=== PATIENT | male | born 1960 | race Caucasian/White ===

== ENCOUNTER 2023-10-09 13:12 | Emergency (ER) | payer BC, SELFPAY ==
[2023-10-09 13:21] VITALS: BP 155/81
--- NOTE | 2023-10-09 15:34 | ED.GENMED ---
History of Present Illness
General
Chief Complaint: Head Injury
Source: patient
Exam Limitations: none
Time Seen by Provider: 10/09/23 15:01
Nursing documentation reviewed up to this point in time: agreed with
Travel History
Have you had any contact with someone who has COVID-19?: No
Do you have any symptoms of coronavirus? Fever > 100 degrees, chills, cough, shortness of breath, sore throat, loss of taste or smell, muscle aches, or headache?: No
History of Present Illness
History of Present Illness:
63 y/o M with no sig pmh
was working on his house in [place] conner ladder
fell about 4 feet and landed on left side, hit head on a wooden pole, had no LOC
has pain mildly in neck and head
went to urgent care in [place] and had yaron placed in the scalp
utd on tetanus
sent for imaging
no nauesa, vomiting, dizziness, ocnfusion, chest pain, shortness of breath, hematuria, back pain
Past History
Past History
ED Past Medical History: None
ED Past Surgical History: None
Social History
Tobacco: Non-smoker
Alcohol: Occasional
Drug: None
Personal:
Living: with family
Employment: Employed
Review of Systems
Review of Systems
Allergies reviewed?: Yes
All Other Systems: Not applicable
Phy Exam
Physical Exam
Physical Exam:
GENERAL: Alert , in no apparent distress
HEAD: irregular laceration stapled to top of scalp (approx5 cm)
no active bleeding, some fresh blood oozed but no bleeding activelly
wound is closed
NECK: no midline tenderness, active ROM intact, no paraspinal muscle tenderness;
EYE: pupils equal and reactive, EOMs intact.
ENT: o/p clr, mmm. no hemotympanum
CARDIAC: Regular rate and rhythm, no edema
LUNGS: Clear breath sounds bilaterally, no acute respiratory distress, no wheezes/rales/rhonchi
ABDOMEN: Soft, without focal tenderness, no r/g, no cvat
NEUROLOGICAL: Alert and oriented, no focal neuro deficits, CN intact, 5/5 strength, sensation intact, finger to nose normal
SKIN: Warm and dry, laceration
MUSCULOSKELETAL: No edema, well perfused.
PSYCH: Normal and appropriate interaction.
Course
Orders/Labs/Results
Orders:
Orders
10/09/23 14:46
CT Head W/o Iv Contrast Urgent
Comment:
Reason For Exam: hit top of head. head lac with yaron placed
10/09/23 14:51
CT Cervical Spine W/o Iv Contr Urgent
Comment:
Reason For Exam: fell has neck discomfort
Vital Signs
Initial and Last Documented VS:
Initial Vital Signs
Temp Pulse Resp BP Pulse Ox
98.3 F 75 16 155/81 100
10/09/23 13:21 10/09/23 13:21 10/09/23 13:21 10/09/23 13:21 10/09/23 13:21
Last Documented Vital Signs
Temp Pulse Resp BP Pulse Ox
98.3 F 75 16 155/81 100
10/09/23 13:21 10/09/23 13:21 10/09/23 13:21 10/09/23 13:21 10/09/23 13:21
MDM/Problems Addressed
Differential Diagnosis Includes:
head injury, concussion, skull fracture, cerivcal frcture, cerivcal strina
MDM/Problems Addressed:
63 y/o M sent from for cts after head injury
fell off ladder 4 feet and hit head, had laceration that was repaired at with yaron
pt lives here but was in [place] at his house there fixing it up
no nausea.vomiting, confusion, LOC
no thinners
neuro intact
cts intact
tetanus UTD
d/c home
*Critical Care Note
Total Time (30-74mins, 75-104mins- exclusive of procedures): Not Applicable
ED Attending Note
-
Portions of this chart may have been created with voice recognition software.� Occasional wrong word or��sound alike� substitutions may have occurred due to the inherent limitations of voice recognition software.
Discharge Plan
Departure
Patient Disposition: Home (Routine Discharge)
Date of Disposition: 10/09/23
Time of Disposition: 15:39
Patient with high blood pressure during this ER visit?: Yes
Condition: Fair
Covid-19: Not Applicable
Discharge Problem:
Complex laceration of scalp, Minor head injury
Instructions: Laceration Repair With [place] (DC), Minor Head Injury (DC), BLOOD PRESSURE
Activity Restrictions/Additional Instructions:
Your CAT scan showed no signs of traumatic head injury or skull fracture or any cervical fracture. You do have mild degenerative changes in your neck. Take Tylenol or ibuprofen as needed for pain. Keep the wound clean and dry, after 24 hours you
can get it wet in the shower once a day. Make sure that there is no dried blood on top of the yaron. They should be removed by your family doctor or you can return to the ER or see urgent care and about 7 days.
Return for severe headache, vomiting, confusion, weakness, numbness or tingling in your arms or legs or any concerns. You could develop symptoms of a concussion in the next day or so. The symptoms would be lightheadedness, fogginess, fatigue,
light sensitivity etc. If you develop these you should avoid working for at least 2 days and avoid activities like reading, cell phone, TV, computer use as these can rarely cause a lot of headaches. After 2 days he should be able to return to the
activity. If you have any issues make sure you are seeing your family doctor first
Interventions
Interventions:
*Risk Screen - Suicide Last Done: 10/09/23 14:30
*General Assessment Last Done: 10/09/23 14:30
*Neglect/Abuse Screening Last Done: 10/09/23 14:30
ED- Fall Risk Assessment Last Done: 10/09/23 14:30
*ED COVID-19 Vaccine History Last Done: 10/09/23 14:30
*Nursing Disposition Last Done: 10/09/23 15:57
ED- Neurological Assessment Last Done: 10/09/23 14:30
ED-Skin Assessment Last Done: 10/09/23 14:30
Discharge Date and Time
Discharge Date/Time: 10/09/23 15:57
Print Language: GREEK
== END 2023-10-09 15:57 | disposition home or self-care (01) ==
LOC: EMR 13:12
PROVIDERS: EMERGENCY PHYSICIAN Emergency Medicine; FAMILY PHYSICIAN Family Medicine
DX: S01.01XA Laceration without foreign body of scalp, initial encounter (principal); S09.90XA Unspecified injury of head, initial encounter; W11.XXXA Fall on and from ladder, initial encounter
CPT/HCPCS: 99284; 70450; 72125

== ENCOUNTER → 2023-12-30 06:21 | Day surgery (SDC) | payer BC, SELFPAY | LOC: GI 06:21 | PROVIDERS: ATTENDING PHYSICIAN Internal Medicine Gastroenterology | DX: R93.3 Abnormal findings on diagnostic imaging of other parts of digestive tract (principal); K64.0 First degree hemorrhoids; R12 Heartburn; K22.89 Other specified disease of esophagus | CPT/HCPCS: 45378; 43239; 88305 ==

== ENCOUNTER 2025-03-16 22:21 | Emergency (ER) | payer BC, SELFPAY ==
[2025-03-16 22:22] VITALS: BP 188/96
[2025-03-16 22:25] VITALS: BP 169/99
[2025-03-16 22:34] VITALS: BP 150/93
[2025-03-16 23:00] VITALS: BP 146/86
[2025-03-16 23:17] VITALS: BP 167/92
[2025-03-16 23:30] VITALS: BP 148/90
[2025-03-16 23:49] LABS: Hematocrit 43.4 % (39.0-52.0); Hemoglobin 14.9 g/dL (13.0-18.0); Mean Corp Hgb Conc. 34.3 g/dL (33.0-37.0); Mean Corpuscular Volume 88.4 fL (80.0-94.0); Nucleated Red Blood Cells % 0 % (-); Platelet Count 215 10^3/uL (130-400); Red Cell Dist. Width 12.1 % (11.5-14.5)
[2025-03-17] VITALS: BP 157/91
[2025-03-17 00:10] LABS: ALT (SGPT) 30 U/L (0-50); AST (SGOT) 30 U/L (17-59); Albumin 4.5 g/dl (3.5-5.0); Alkaline Phosphatase 55 U/L (38-126); Blood Urea Nitrogen 15 mg/dl (9-20); Calcium 9.3 mg/dl (8.4-10.2); Carbon Dioxide 26 mmol/L (22-30); Chloride 102 mmol/L (98-107); Estimated Creatinine Clearance 111 ml/min; Glucose 103 mg/dl (70-99); Potassium 3.8 mmol/L (3.5-5.1); Sodium 133 mmol/L (135-145); Total Protein 7.7 g/dl (6.3-8.2); eGFR > 60.00
[2025-03-17 00:11] LABS: Troponin I 0.019 ng/ml
[2025-03-17 00:37] VITALS: BP 139/87
[2025-03-17 01:00] VITALS: BP 126/82
[2025-03-17 01:30] VITALS: BP 129/85
[2025-03-17 02:00] VITALS: BP 121/81
--- NOTE | 2025-03-17 02:03 | ED.GENMED ---
History of Present Illness
General
Chief Complaint: Blood Pressure Problem
Source: patient and spouse
Exam Limitations: none
Time Seen by Provider: 03/16/25 23:38
Nursing documentation reviewed up to this point in time: agreed with
History of Present Illness
History of Present Illness:
65-year-old male presenting to the emergency department today with concerns of elevated blood pressure over the past 5 days and intermittent headache described as frontal achy lasting for few minutes and then resolving.
Past History
Past History
ED Past Medical History: None
ED Past Surgical History: None
Social History
Tobacco: Non-smoker
Alcohol: Occasional
Drug: None
Personal:
Living: with family
Employment: Employed
Review of Systems
Review of Systems
Allergies reviewed?: Yes
All Other Systems: ROS reviewed and negative except as documented in HPI and ROS
Phy Exam
Physical Exam
Physical Exam:
GENERAL: Alert , in no apparent distress
EYE: pupils equal and reactive
NECK: Supple, no significant adenopathy.
ENT: o/p clr, mmm.
CARDIAC: Regular rate and rhythm .
LUNGS: Clear breath sounds bilaterally, no acute respiratory distress, no wheezes/rales/rhonchi
ABDOMEN: Soft, without focal tenderness, no r/g, no cvat
NEUROLOGICAL: Alert and oriented, no focal neuro deficits 5 out of 5 upper and lower extremity strength normal sensation with palpating bilaterally normal finger-nose and [id number] no pronator drift
SKIN: Warm and dry, skin intact.
MUSCULOSKELETAL: No edema, well perfused.
PSYCH: Normal and appropriate interaction.
Course
Orders/Labs/Results
Orders:
Orders
03/16/25 23:25
EKG [Electrocardiogram (*1)] Stat
Reason for Study: Chest Pain
03/16/25 23:26
EKG- Treatment ONCE
03/16/25 23:27
Cardiac Monitoring- Treatment ONCE
IV Insert/Care/Rem.- Treatment PRN
03/16/25 23:29
Complete Blood Count/With Diff Urgent
Comprehensive Metabolic Panel Urgent
Troponin I Urgent
03/17/25 00:00
CR Chest - 2 Views Urgent
Reason For Exam: respiratory distress
03/17/25 00:13
CT Head W/o Iv Contrast Urgent
Comment:
Reason For Exam: NATH new
03/17/25 02:02
Ketorolac [Toradol] 15 mg IV NOW STA
Abnormal Lab Results
03/16/25
23:29
Sodium 133 L mmol/L
(135-145)
Glucose 103 H mg/dl
(70-99)
03/16/25 23:29
03/16/25 23:29
Vital Signs
Initial and Last Documented VS:
Initial Vital Signs
Temp Pulse Resp BP Pulse Ox
98 F 74 16 188/96 98
03/16/25 22:22 03/16/25 22:22 03/16/25 22:22 03/16/25 22:22 03/16/25 22:22
Last Documented Vital Signs
Temp Pulse Resp BP Pulse Ox
97.9 F 63 17 129/85 97
03/16/25 22:48 03/17/25 01:30 03/17/25 01:30 03/17/25 01:30 03/17/25 01:30
MDM/Problems Addressed
MDM/Problems Addressed:
65-year-old male presenting to the emergency department today with concerns of elevated blood pressure over the past 5 days and intermittent headache also feels shaky when he has a headache. Here blood pressure elevated on arrival otherwise vital
signs are normal. Blood pressure improving without specific treatment labs unremarkable other than slightly low sodium level troponin negative EKG without emergent findings chest x-ray normal and head CT negative. Patient no distress here stable
for close outpatient follow-up. Return precautions given.
*Pulse Oximetry
SaO2: 97
Oxygen Mode of Delivery: Room air
Patient hypoxic: no (97)
*Critical Care Note
Total Time (30-74mins, 75-104mins- exclusive of procedures): Not Applicable
ED Attending Note
-
Portions of this chart may have been created with voice recognition software.� Occasional wrong word or��sound alike� substitutions may have occurred due to the inherent limitations of voice recognition software.
Discharge Plan
Departure
Patient Disposition: Home (Routine Discharge)
Date of Disposition: 03/17/25
Time of Disposition: 02:06
Patient with high blood pressure during this ER visit?: No
Condition: Good
Covid-19: Not Applicable
Discharge Problem:
Headache
Instructions: Headache in adults - ED (DC)
Referrals:
Beto Fernandez PA [Family Provider, Family Practice]
Activity Restrictions/Additional Instructions:
You came to the emergency department today with concerns of headache and high blood pressure. Here your blood pressure improved. Your reassuring assessment with normal head CT and labs. Please feel close with your primary care doctor within 1
week. Return for any progressive or worsening symptoms.
Interventions
Interventions:
*Risk Screen - Suicide Last Done: 03/16/25 22:22
*General Assessment Last Done: 03/16/25 22:44
*Neglect/Abuse Screening Last Done: 03/16/25 22:22
*ED- Fall Risk Assessment Last Done: 03/16/25 22:44
*ED COVID-19 Vaccine History Last Done: 03/16/25 22:44
*ED Influenza Vaccine History Last Done: 03/16/25 22:44
ED- Cardiac Assessment Last Done: 03/16/25 22:45
ED- Neurological Assessment Last Done: 03/16/25 22:52
ED- Pulmonary Assessment Last Done: 03/16/25 22:49
Discharge Date and Time
Print Language: HUNGARIAN
[2025-03-17] MEDS: TORADOL 15 MG IV (02:05)
== END 2025-03-17 02:11 | disposition home or self-care (01) ==
LOC: EMR 22:21
PROVIDERS: EMERGENCY PHYSICIAN Student in an Organized Health Care Education/Training Program; FAMILY PHYSICIAN Physician Assistant
DX: R51.9 Headache, unspecified (principal)
CPT/HCPCS: 99284; 96374; 70450; 71046; 80053; 84484; 85025; 93005

== ENCOUNTER 2025-03-17 12:55 | Emergency (ER) | payer BC, SELFPAY ==
[2025-03-17] VITALS (7 sets, daily range): BP systolic 152–166; BP diastolic 89–102
--- NOTE | 2025-03-17 14:45 | ED.GENMED ---
History of Present Illness
<Graham Pennington PA-C - Last Filed: 03/20/25 08:47>
General
Chief Complaint: Blood Pressure Problem
Source: patient
Exam Limitations: none
Time Seen by Provider: 03/17/25 14:27
History of Present Illness
History of Present Illness:
65-year-old male presents with persistently elevated blood pressure readings shakiness headache and he had some chest discomfort this morning as well. He was here overnight. He develops these episodes of shakiness heavier breathing foggy headache.
He has not been previously diagnosed with high blood pressure. His readings at home were 190/110. He denies any vision change or dizziness. No unilateral numbness or weakness. No other complaints at this time
Past History
<PAULETTE Martin Last Filed: 03/20/25 08:47>
Past History
ED Past Medical History: None
ED Past Surgical History: None
Social History
Tobacco: Non-smoker
Alcohol: Occasional
Drug: None
Personal:
Living: with family
Employment: Employed
Phy Exam
<PAULETTE Martin Last Filed: 03/20/25 08:47>
Physical Exam
Physical Exam:
General: Well-appearing male no acute respiratory distress
HEENT: Normal cephalic atraumatic
Heart: Regular rate and rhythm
Lungs clear no wheeze
Extremities: No cyanosis or edema
Skin warm no rash
Neurologic exam normal gait alert and oriented no facial asymmetry
Course
<PAULETTE Martin Last Filed: 03/20/25 08:47>
Orders/Labs/Results
Orders:
Orders
03/17/25 12:56
EKG [Electrocardiogram (*1)] Urgent
Reason for Study: Chest Pain
EKG- Treatment ONCE
03/17/25 14:52
Complete Blood Count/With Diff Urgent
Comprehensive Metabolic Panel Urgent
TSH Reflex To Free T4 Urgent
Troponin I Urgent
03/17/25 18:28
CT Chest Angio W/wo Iv Contras Urgent
Comment:
Reason For Exam: chest pain
03/17/25 18:34
Troponin I Urgent
03/17/25 20:50
EKG [Electrocardiogram (*1)] Urgent
Reason for Study: Chest Pain
EKG- Treatment ONCE
03/17/25 20:51
Troponin I Urgent
03/17/25 14:52
03/17/25 14:52
Vital Signs
Initial and Last Documented VS:
Initial Vital Signs
Temp Pulse Resp BP Pulse Ox
98.2 F 68 16 163/97 99
03/17/25 13:02 03/17/25 13:02 03/17/25 13:02 03/17/25 13:02 03/17/25 13:02
Last Documented Vital Signs
Temp Pulse Resp BP Pulse Ox
98.2 F 68 13 166/92 96
03/17/25 13:02 03/17/25 21:00 03/17/25 21:00 03/17/25 21:00 03/17/25 21:00
<Aydin Martinez MD - Last Filed: 03/17/25 19:41>
Orders/Labs/Results
Orders:
Orders
03/17/25 12:56
EKG [Electrocardiogram (*1)] Urgent
Reason for Study: Chest Pain
EKG- Treatment ONCE
03/17/25 14:52
Complete Blood Count/With Diff Urgent
Comprehensive Metabolic Panel Urgent
TSH Reflex To Free T4 Urgent
Troponin I Urgent
03/17/25 18:28
CT Chest Angio W/wo Iv Contras Urgent
Comment:
Reason For Exam: chest pain
03/17/25 18:34
Troponin I Urgent
03/17/25 20:50
EKG [Electrocardiogram (*1)] Urgent
Reason for Study: Chest Pain
EKG- Treatment ONCE
03/17/25 20:51
Troponin I Urgent
03/17/25 14:52
03/17/25 14:52
Vital Signs
Initial and Last Documented VS:
Initial Vital Signs
Temp Pulse Resp BP Pulse Ox
98.2 F 68 16 163/97 99
03/17/25 13:02 03/17/25 13:02 03/17/25 13:02 03/17/25 13:02 03/17/25 13:02
Last Documented Vital Signs
Temp Pulse Resp BP Pulse Ox
98.2 F 68 13 166/92 96
03/17/25 13:02 03/17/25 21:00 03/17/25 21:00 03/17/25 21:00 03/17/25 21:00
<rGaham Pennington PA-C - Last Filed: 03/20/25 08:47>
MDM/Problems Addressed
Differential Diagnosis Includes:
Patient with elevated blood pressure readings shakiness. No prior history of hypertension was here last night for the same. CT of the head last night was negative. He did develop chest discomfort this morning. EKG through triage shows sinus
rhythm with a rate of 68 no ischemic changes. Troponin is pending
<Graham Pennington PA-C - Last Filed: 03/20/25 08:47>
*Pulse Oximetry
SaO2: 99
Oxygen Mode of Delivery: Room air
Patient hypoxic: no
*Critical Care Note
Total Time (30-74mins, 75-104mins- exclusive of procedures): Not Applicable
<Graham Pennington PA-C - Last Filed: 03/20/25 08:47>
Update Note
Update Note:
Initial troponin undetectable, second troponin 0.019 patient did have an episode of chest discomfort while he was here third troponin is pending. Discussed with emergency room attending saw the patient as well. Blood pressure staying in the 150s
over 90s range. He did endorse that he has a history of an aneurysm in his chest. Due to the discomfort and elevated blood pressure CT angiogram of the chest was ordered which is negative for acute finding. There is a stable small ascending
aortic aneurysm without evidence of dissection. If third troponin stable patient is stable for discharge pain follow-up. Will prescribe low-dose beta-greta for his high [place] until follow-up
ED Attending Note
<Graham Pennington PA-C - Last Filed: 03/20/25 08:47>
-
Portions of this chart may have been created with voice recognition software.� Occasional wrong word or��sound alike� substitutions may have occurred due to the inherent limitations of voice recognition software.
<Aydin Martinez MD - Last Filed: 03/17/25 19:41>
ED Attending Note
Patient seen and examined by attending physician: Yes
I performed the substantive portion of visit, reviewed & personally made and approve the management plan that is documented in note by myself or DEVYN.: Yes
ED Attending Note:
65-year-old male returns complaining of elevated blood pressure and some intermittent chest pain. Patient was seen last night for a headache. Blood pressure became a concern 4 days ago when he had a stressful day at work felt off and checked his
blood pressure which was elevated. Last evening he felt his blood pressure was elevated and developed a headache. Headache was not a thunderclap headache no visual issues no neurologic symptoms. Blood pressure improved during the ER visit last
evening. CT was negative. Patient was stable for discharge. However today he had recurring concerns with his blood pressure and had a few episodes of brief vague nonexertional chest discomfort. No radiation no nausea no diaphoresis.
On exam patient is nontoxic in no distress. Stable vital signs. Last blood pressure 155/91. Exam is unremarkable. Lungs are clear and equal. Heart regular rate and rhythm. Abdomen is nontender. EKG is stable. Troponin is negative however
repeat troponin remains negative at 0.019. Likely has no consequence but since there is a minuscule trending up we will treat that again. CT angiography stable. Will arrange close follow-up with cardiology. Plus minus starting very mild blood
pressure management.
Discharge Plan
Departure
Patient Disposition: Home (Routine Discharge)
Date of Disposition: 03/17/25
Time of Disposition: 21:52
Patient with high blood pressure during this ER visit?: Yes
Discharge Problem:
Hypertension, Chest pain
Instructions: High Blood Pressure (DC), Chest Pain DCA Follow Up
Prescriptions:
New
metoprolol tartrate 25 mg tablet
12.5 mg PO DAILY Qty: 14 0RF
Referrals:
Beto Fernandez PA [Family Provider, Family Practice]
Aydin Fernando MD [Active, Cardiology]
Activity Restrictions/Additional Instructions:
Take medicine as directed once a day. Please follow-up with cardiology, they should call you to set up an appointment. Return if worse otherwise
Interventions
Interventions:
*Risk Screen - Suicide Last Done: 03/17/25 13:02
*General Assessment Last Done: 03/17/25 14:39
*Neglect/Abuse Screening Last Done: 03/17/25 13:02
*ED- Fall Risk Assessment Last Done: 03/17/25 21:05
*ED COVID-19 Vaccine History Last Done: 03/17/25 14:39
*ED Influenza Vaccine History Last Done: 03/17/25 14:39
*Nursing Disposition Last Done: 03/17/25 22:06
ED- Cardiac Assessment Last Done: 03/17/25 14:39
ED- Neurological Assessment Last Done: 03/17/25 14:39
ED- Pulmonary Assessment Last Done: 03/17/25 14:39
Discharge Date and Time
Discharge Date/Time: 03/17/25 22:24
Print Language: [place]NA[place]
[2025-03-17 14:59] LABS: Hematocrit 44.0 % (39.0-52.0); Hemoglobin 14.9 g/dL (13.0-18.0); Mean Corp Hgb Conc. 33.9 g/dL (33.0-37.0); Mean Corpuscular Volume 89.1 fL (80.0-94.0); Nucleated Red Blood Cells % 0 % (-); Platelet Count 209 10^3/uL (130-400); Red Cell Dist. Width 12.0 % (11.5-14.5)
[2025-03-17 15:15] LABS: ALT (SGPT) 29 U/L (0-50); AST (SGOT) 27 U/L (17-59); Albumin 4.4 g/dl (3.5-5.0); Alkaline Phosphatase 58 U/L (38-126); Blood Urea Nitrogen 14 mg/dl (9-20); Calcium 9.5 mg/dl (8.4-10.2); Carbon Dioxide 26 mmol/L (22-30); Chloride 106 mmol/L (98-107); Glucose 94 mg/dl (70-99); Potassium 4.1 mmol/L (3.5-5.1); Sodium 135 mmol/L (135-145); Total Protein 7.7 g/dl (6.3-8.2); eGFR > 60.00
[2025-03-17 15:37] LABS: Troponin I < 0.012 ng/ml
[2025-03-17 19:04] LABS: Troponin I 0.019 ng/ml
[2025-03-17 21:26] LABS: Troponin I 0.016 ng/ml
== END 2025-03-17 22:24 | disposition home or self-care (01) ==
LOC: EMR 12:55
PROVIDERS: Physician Assistant; EMERGENCY PHYSICIAN Emergency Medicine; FAMILY PHYSICIAN Physician Assistant
DX: I10 Essential (primary) hypertension (principal); R07.89 Other chest pain
CPT/HCPCS: 99284; 71275; 80053; 84443; 84484; 85025; 93005; Q9967

== ENCOUNTER 2025-03-28 13:12 | Emergency (ER) | payer OTHER, SELFPAY ==
[2025-03-28 13:15] VITALS: BP 137/88
--- NOTE | 2025-03-28 13:39 | ED.GENMED ---
History of Present Illness
General
Chief Complaint: Eye Problems
Source: patient
Exam Limitations: none
Time Seen by Provider: 03/28/25 13:37
Nursing documentation reviewed up to this point in time: agreed with
History of Present Illness
History of Present Illness:
65-year-old male with no significant past medical history presents for visual disturbance right eye. States yesterday a.m. he had a 'bright crescent' outer right visual field until bedtime, then again upon awakening at 8 a.m. but none since. Also
has had 'like a film' in the right eye when he moves the eye back and forth and this has persisted. Denies pain in the eye.
He's had a frontal headache past two weeks that he always gets this time of year due to the dry weather.
Has hx 'optical mingraines' for many years, sometime every month, sometimes none for 6 months, states current symptoms are not typical of those migraines
Past History
Past History
ED Past Medical History: Other (Headaches 'optical migraines')
ED Past Surgical History: Appendectomy
Social History
Tobacco: Non-smoker
Alcohol: Occasional
Drug: None
Personal:
Living: with family
Employment: Employed
Review of Systems
Review of Systems
Allergies reviewed?: Yes
All Other Systems: ROS reviewed and negative except as documented in HPI and ROS
Phy Exam
Physical Exam
Physical Exam:
GENERAL: No acute distress. A&Ox3.
CONSTITUTIONAL: Afebrile.
EYES: clear, conjunctivae normal EOM's intact.,
ENMT: moist mucus membranes, Pharynx nl
RESPIRATORY: Regular respirations, nonlabored, lungs clear.
CARDIOVASCULAR: Regular rate and rhythm, no murmurs, no rubs.
MUSCULOSKELETAL: Moves with ease. Well perfused.
SKIN: Warm, dry, pink
PSYCH: Normal mood and affect. Well kept, interactive and appropriate
NEUROLOGIC: Awake, alert and oriented. No focal neurological deficits
Eye Exam
Eye Exam: PERRL, EOMI, cornea clear, conjunctiva normal, disc sharp, globe normal, visual acuity normal and visual dimas normal
Course
Orders/Labs/Results
Orders:
Orders
03/28/25 13:39
Visual Acuity- Treatment ONCE
Vital Signs
Initial and Last Documented VS:
Initial Vital Signs
Temp Pulse Resp BP Pulse Ox
98.2 F 79 16 137/88 98
03/28/25 13:15 03/28/25 13:15 03/28/25 13:15 03/28/25 13:15 03/28/25 13:15
Last Documented Vital Signs
Temp Pulse Resp BP Pulse Ox
98.2 F 79 16 137/88 98
03/28/25 13:15 03/28/25 13:15 03/28/25 13:15 03/28/25 13:15 03/28/25 13:39
MDM/Problems Addressed
Differential Diagnosis Includes:
Retinal detachment, posterior vitreous detachment, migraine with visual aura, transient retinal ischemia, retinal vein occlusion, optical neuritis, vitreous hemorrhage
MDM/Problems Addressed:
65-year-old male with no significant past medical history presents for visual disturbance right eye. States yesterday a.m. he had a 'bright crescent' outer right visual field until bedtime, then again upon awakening at 8 a.m. but none since. Also
has had 'like a film' in the right eye when he moves the eye back and forth looking to right and left, and this has persisted. Denies pain in the eye.
He's had a frontal headache past two weeks that he always gets this time of year due to the dry weather.
Has hx 'optical mingraines' for many years, sometime every month, sometimes none for 6 months, states current symptoms are not typical of those migraines
Seen here on 03/16 and 03/17 for 'headache, shakiness, foggy headache' intermittent chest pain, according to record. W/U neg including head CT CT angiogram of chest (pt reported he has an aneurysm in his chest; CT showed 'borderline aneurysmal
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
Was discharged on low dose Beta greta Metoprolol Tartrate 12.5 mg of which he took three and developed 'hives' so discontinued it.
BP 137/88
Viual acuity 20/15 each eye and both eyes
2:45 p.m.
Consulted Field [employer] Dr. Prince Jackson who agrees ok and safe to wait until tomorrow's appointment with his eye doctor.
Chronic conditions affecting care:
hx optical migraines
*Pulse Oximetry
SaO2: 98
Oxygen Mode of Delivery: Room air
Patient hypoxic: not evaluated
*Critical Care Note
Total Time (30-74mins, 75-104mins- exclusive of procedures): Not Applicable
ED Attending Note
-
Portions of this chart may have been created with voice recognition software.� Occasional wrong word or��sound alike� substitutions may have occurred due to the inherent limitations of voice recognition software.
Discharge Plan
Departure
Patient Disposition: Home (Routine Discharge)
Date of Disposition: 03/28/25
Time of Disposition: 14:56
Patient with high blood pressure during this ER visit?: No
Condition: Good
Discharge Problem:
Vision disturbance
Instructions: Migraine in adults
Prescriptions:
No Action
metoprolol tartrate 25 mg tablet
12.5 mg PO DAILY Qty: 14 0RF
Referrals:
Your Eye Doctor [Other] - Keep scheduled appt
Beto Fernandez PA [Family Provider, Family Practice]
Ale Jackson MD [Active, Ophthalmology] - As needed
Activity Restrictions/Additional Instructions:
As we discussed, this may be an ocular migraine.
keep your appointment with your eye doctor tomorrow.
Return immediately for loss of vision, red, painful eye
Interventions
Interventions:
*Risk Screen - Suicide Last Done: 03/28/25 13:15
*General Assessment Last Done: 03/28/25 15:09
*Neglect/Abuse Screening Last Done: 03/28/25 13:15
*ED- Fall Risk Assessment Last Done: 03/28/25 15:09
*ED COVID-19 Vaccine History Last Done: 03/28/25 15:09
*ED Influenza Vaccine History Last Done: 03/28/25 15:09
*Nursing Disposition Last Done: 03/28/25 15:09
Discharge Date and Time
Discharge Date/Time: 03/28/25 15:10
Print Language: [place]
== END 2025-03-28 15:10 | disposition home or self-care (01) ==
LOC: EMR 13:12
PROVIDERS: EMERGENCY PHYSICIAN Emergency Medicine; FAMILY PHYSICIAN Physician Assistant
DX: H53.9 Unspecified visual disturbance (principal); G43.109 Migraine with aura, not intractable, without status migrainosus
CPT/HCPCS: 99282

== ENCOUNTER → 2025-04-18 08:19 | Outpatient (REF) | payer OTHER, SELFPAY | LOC: RAD 08:19 | PROVIDERS: ATTENDING PHYSICIAN Specialist; FAMILY PHYSICIAN Physician Assistant | DX: I10 Essential (primary) hypertension (principal) | CPT/HCPCS: 93975 ==

== ENCOUNTER → 2025-04-22 10:08 | Outpatient (REF) | payer OTHER, SELFPAY | LOC: RAD 10:08 | PROVIDERS: ATTENDING PHYSICIAN Physician Assistant | DX: G89.29 Other chronic pain (principal); M54.41 Lumbago with sciatica, right side; M25.551 Pain in right hip | CPT/HCPCS: 72110; 73502 ==

== ENCOUNTER → 2025-05-19 09:14 | Outpatient (REF) | payer OTHER, SELFPAY | LOC: PAVMRI 09:14 | PROVIDERS: ATTENDING PHYSICIAN Orthopaedic Surgery; FAMILY PHYSICIAN Physician Assistant | DX: M54.16 Radiculopathy, lumbar region (principal) | CPT/HCPCS: 72148 ==